=== PATIENT | male | born 1935 | race Caucasian/White ===

== ENCOUNTER 2017-01-27 16:55 | Inpatient (IN) | payer MEDICARE, OTHER ==
[2017-01-27] MEDS: Sodium Chloride 0.9% 1000 ML 1,000 ML IV SCH (17:26)
[2017-01-27 17:32] LABS: Lactic Acid 3.4 (0.4-2.0)
[2017-01-27 17:35] LABS: BASOPHIL % 0.4 % (0.0-0.4); Granulocytes % 77.8 % (36.0-66.0); Lymphocytes % 10.7 % (24.0-44.0); Mean Corpuscular Hemoglobin 31.1 pg (26-32); Mean Platelet Volume 9.7 fl (6-9.5); Monocytes % 9.1 % (0.0-12.0); Platelet Count 237 K/mm3 (150-450); Red Blood Count 4.54 M/mm3 (4.1-5.6); Red Cell Distribution Width 13.4 % (11.5-14.0); White Blood Count 9.4 K/mm3 (4.0-10.5)
--- NOTE | 2017-01-27 17:36 | ERPHSYRPT ---
- History of Present Illness Time Seen by Provider: 01/27/17 17:19 Source: patient, EMS Patient Subjective Stated Complaint: PT BROUGHT TO ED PER EMS FROM HOME-REPORTS CALLED TO SCENE FOR SYNCAPAL EPISODE-REPROTS PT WAS WAKING UP UPON THEIR ARRIVAL -VOMIT X 1-PT DENIES PAIN-PT STATES THAT HE HAS HAD RECENT FALLS Triage Nursing Assessment: PT ALERT ANSWERING QUESTIONS CORRECTLY-BRUISES NOTED- OPENED SORES NOTED TO BILATERAL LOWER LEGS-RESP NONLABORED-PUPILS RESPONSIVE Physician History: CC: syncope Hx: 81 y/o patient with no local doctor. He fall a lot when he gets up at night to urinate. Today he went to BR. He was going back to his easy chair and passed out. Friend apparently found him blacked out in the easy chair. No specific injury today. He has multiple abrasions on legs. He has contusion to left face and left subconj hemorrhage which he reports is from fall a week ago. He has some headache. No neck pain. No local doctor ALL: None Meds: Aleve prn Surg: Eye ILL: None Social: Nonsmoker,lives alone Prior Episodes: single episode today Timing/Duration: today Precipitating Factors: none Allergies/Adverse Reactions: No Known Drug Allergies Allergy (Unverified 01/27/17 17:06) Home Medications: No Home Meds 1 ea MC UD 01/27/17 [History] Hx Tetanus, Diphtheria Vaccination/Date Given: No Hx Influenza Vaccination/Date Given: Yes Hx Pneumococcal Vaccination/Date Given: No Immunizations Up to Date: Yes - Past Medical History Pertinent Past Medical History: No - Past Surgical History Past Surgical History: No - Social History Smoking Status: Never smoker Exposure to second hand smoke: No Drug Use: none Patient Lives Alone: No - Review of Systems Constitutional: Fatigue, Malaise, Weakness, Other (frequent falls), No Fever, No Chills Eyes: No Symptoms Respiratory: No Cough, No Dyspnea Cardiac: Syncope, No Chest Pain, No Edema, No Palpitations Abdominal/Gastrointestinal: No Abdominal Pain, No Nausea, No Vomiting, No Diarrhea Genitourinary Symptoms: Frequency, Hesitancy, No Dysuria Musculoskeletal: Injury (frequent falls), No Back Pain, No Neck Pain Neurological: Headache, No Focal Weakness, No Parasthesia All Other Systems: Reviewed and Negative Physical Exam - Nursing Vital Signs Nursing Vital Signs: Initial Vital Signs Temperature 98.8 F Temperature Source Rectal Pulse Rate 80 Respiratory Rate 20 Blood Pressure [] 130/65 Pain Intensity 0 - Madalyn Coma Scale Best Eye Response (Maadlyn): (4) open spontaneously Best Verbal Response (Manley): (5) oriented Best Motor Response (Manley): (6) obeys commands Madalyn Total: 15 - Physical Exam General Appearance: alert Eye Exam: left eye: conjunctival hemorrhage, bilateral eye: PERRL, EOMI Ears, Nose, Throat Exam: normal ENT inspection, moist mucous membranes, other ( no facial bony tenderness) Neck Exam: normal inspection, non-tender, supple Respiratory: normal breath sounds Cardiovascular: regular rate/rhythm, No murmur Gastrointestinal: soft, hernia (inguinal right), No tenderness, No distention Male Genitalia: No testicular tenderness Back Exam: normal inspection, No vertebral tenderness Extremity Exam: normal range of motion, other (multiple abrasions, contusions) Mental Status: alert, oriented x 3, cooperative Motor/Sensory: no motor deficit, no sensory deficit Skin Exam: normal color, warm, dry, No rash SpO2 Interpretation: normal SpO2: 96 Oxygen Delivery: Room Air - Course Nursing assessment & vital signs reviewed: Yes EKG Interpreted by Me: RATE (74), Sinus Rhythm, NORMAL AXIS, NORMAL INTERVALS ( QTc 424), NORMAL QRS, NORMAL ST-T - Radiology Exams cxr X-ray Interpretation: Reviewed by me, Negative - CT Exams head CT Interpretation: Tele-radiologist Report (maxillary sinus thickening with air fluid level), No Fracture, No/Intracranial Hemorrhag cervical CT Interpretation: Tele-radiologist Report, DJD, No Fracture, No Subluxation Ordered Tests: Active Orders 24 hr Category Date Time Status Clean Catch Urine Specimen STAT Care 01/27/17 17:19 Active EKG-ER Only STAT Care 01/27/17 17:19 Active IV Insertion STAT Care 01/27/17 17:19 Active CERVICAL SPINE WO CONTRAST [CT] Stat Exams 01/27/17 17:25 Taken CHEST 1 VIEW (PORTABLE) Stat Exams 01/27/17 17:19 Taken HEAD WITHOUT CONTRAST [CT] Stat Exams 01/27/17 17:25 Taken BLOOD CULTURE Stat Lab 01/27/17 17:30 Received CBC W DIFF Stat Lab 01/27/17 17:30 Completed CMP Stat Lab 01/27/17 17:30 Completed Lactic Acid Stat Lab 01/27/17 17:19 Results PROTIME WITH INR Stat Lab 01/27/17 17:30 Completed PTT Stat Lab 01/27/17 17:30 Completed UA Stat Lab 01/27/17 17:19 Ordered Medication Summary Generic Name Dose Route Start Last Admin Trade Name Delisa PRN Reason Stop Dose Admin Sodium Chloride 1,000 mls @ 100 mls/hr 01/27/17 17:30 01/27/17 17:26 Sodium Chloride 0.9% 1000 Ml IV 02/26/17 17:29 100 mls/hr .Q10H REYNA Administration Lab/Rad Data: Laboratory Result Diagrams 01/27/17 17:30 01/27/17 17:30 Laboratory Results 01/27/17 01/27/17 01/27/17 Range/Units 17:30 17:30 17:30 WBC 9.4 (4.0-10.5) K/mm3 RBC 4.54 (4.1-5.6) M/mm3 Hgb 14.1 (12.5-18.0) gm/dl Hct 41.3 L (42-50) % MCV 91.0 (78-100) fl MCH 31.1 (26-32) pg MCHC 34.1 (32-36) g/dl RDW 13.4 (11.5-14.0) % Plt Count 237 (150-450) K/mm3 MPV 9.7 H (6-9.5) fl Gran % 77.8 H (36.0-66.0) % Lymphocytes % 10.7 L (24.0-44.0) % Monocytes % 9.1 (0.0-12.0) % Eosinophils % 2.0 (0.00-5.0) % Basophils % 0.4 (0.0-0.4) % Basophils # 0.04 (0-0.4) INR 1.09 (0.8-3.0) APTT 25.5 (24.1-36.1) SECONDS Sodium 144 (136-145) mEq/L Potassium 3.8 (3.5-5.1) mEq/L Chloride 107 (98-107) mEq/L Carbon Dioxide 28.4 (21-32) mEq/L Anion Gap 12.6 (5-15) MEQ/L BUN 24 H (9-20) mg/dL Creatinine 1.29 (0.55-1.30) mg/dl Estimated GFR 57 ML/MIN Glucose 180 H (70-110) MG/DL Lactic Acid (0.4-2.0) Calcium 9.3 (8.5-10.1) mg/dL Total Bilirubin 0.5 (0.2-1.0) mg/dL AST 38 H (15-37) U/L ALT 33 (12-78) U/L Alkaline Phosphatase 59 (46-116) U/L Serum Total Protein 6.6 (6.4-8.2) gm/dL Albumin 3.1 L (3.4-5.0) g/dL 01/27/17 Range/Units 17:19 WBC (4.0-10.5) K/mm3 RBC (4.1-5.6) M/mm3 Hgb (12.5-18.0) gm/dl Hct (42-50) % MCV (78-100) fl MCH (26-32) pg MCHC (32-36) g/dl RDW (11.5-14.0) % Plt Count (150-450) K/mm3 MPV (6-9.5) fl Gran % (36.0-66.0) % Lymphocytes % (24.0-44.0) % Monocytes % (0.0-12.0) % Eosinophils % (0.00-5.0) % Basophils % (0.0-0.4) % Basophils # (0-0.4) INR (0.8-3.0) APTT (24.1-36.1) SECONDS Sodium (136-145) mEq/L Potassium (3.5-5.1) mEq/L Chloride (98-107) mEq/L Carbon Dioxide (21-32) mEq/L Anion Gap (5-15) MEQ/L BUN (9-20) mg/dL Creatinine (0.55-1.30) mg/dl Estimated GFR ML/MIN Glucose (70-110) MG/DL Lactic Acid 3.4 H (0.4-2.0) Calcium (8.5-10.1) mg/dL Total Bilirubin (0.2-1.0) mg/dL AST (15-37) U/L ALT (12-78) U/L Alkaline Phosphatase (46-116) U/L Serum Total Protein (6.4-8.2) gm/dL Albumin (3.4-5.0) g/dL - Progress Progress Note: 01/27/17 17:[address] to rule out subdural hematomas. 01/27/17 19:19 Friend Rashmi here. She saw pt pass out. She was helping him move from a chair to a softer chair. He laid head on her chest, blacked out, completely unresponsive, vomited, had labored breathing. He did not awaken until ambulance. He has no jerking or seizure activity. It appears he has true syncope. He has considered moving to a [place] close to [place], [place]. Called Dr Hillman (oc) and will place in observation for tele and EEG. Discussed with : Rafy (oc) Will see patient in: hospital (observation) Counseled pt/family regarding: lab results, diagnosis, need for follow-up, rad results - Departure Time of Disposition: 19:21 Departure Disposition: Observation (Tele) Clinical Impression: Syncope, Frequent falls, Sinusitis Condition: Stable Critical Care Time: No
[2017-01-27 17:47] LABS: INR 1.09 (0.8-3.0); PROTIME 12.2 SECONDS (8.83-12.87)
[2017-01-27 17:49] LABS: PTT 25.5 SECONDS (24.1-36.1)
[2017-01-27 17:55] LABS: ALBUMIN 3.1 g/dL (3.4-5.0); ANION GAP 12.6 MEQ/L (5-15); BILIRUBIN,TOTAL 0.5 mg/dL (0.2-1.0); Carbon Dioxide 28.4 mEq/L (21-32); Potassium 3.8 mEq/L (3.5-5.1); Total Protein 6.6 gm/dL (6.4-8.2)
[2017-01-27] MEDS ORDERED: TENIVAC VIAL IM ONE ×2 (19:19→19:37)
[2017-01-27] MEDS ORDERED: ROCEPHIN 1 Gm-D5w 50 ml Bag** 1 G/50 ML IVPB IV ONE ×2 (19:22→19:37)
[2017-01-27] MEDS: Artificial Tears 15 ML OP PRN (22:36)
[2017-01-27 22:40] LABS: COMPLETE URINE MICROSCOPIC? YES; Collection Type CLEAN CATCH; Epithelial Cells FEW /HPF (FEW); Mucus SLIGHT /HPF (NEGATIVE); Ph 5.5 (5-6)
--- NOTE | 2017-01-27 22:53 | XRAY ---
Indication: Syncope. Headache. Multiple contiguous axial images obtained through the head without contrast. Comparison: None Age-appropriate global atrophy and mild periventricular degenerative micro-ischemia. No acute intracranial hemorrhage, abnormal extra-axial fluid collection, or mass effect. Fourth ventricle is midline without hydrocephalus. Bony calvarium intact. Moderate mucosal thickening of both maxillary sinuses with tiny fluid leveling. Mastoid air cells are clear. Impression: 1. Nonacute senile brain. 2. Incidental paranasal sinus disease. Comment: Preliminary interpretation was made by [facility]. No discrepancy. CTDI 50.53
--- NOTE | 2017-01-27 22:53 | XRAY ---
Indication: Syncope. Headache. Comparison: None Portable chest demonstrates normal heart and lungs. Bony thorax intact with mild osteopenia, degenerative changes, and old left clavicle fracture.
--- NOTE | 2017-01-27 22:59 | XRAY ---
Indication: Syncope. Headache. Multiple contiguous axial images obtained through the cervical spine. Sagittal and coronal reformatted images obtained. Comparison: None Axial images negative for acute fracture, suspicious bony lesions, or spinal canal stenosis. Moderate/advanced multilevel degenerative changes including endplate spurring, subcortical cysts, degenerative vacuum discs, and bilateral degenerative facet arthropathy. Sagittal and coronal reformatted images demonstrates normal alignment with multilevel degenerative disc space narrowing, greatest at the C5-C7 levels. No acute compression fracture, subluxation, or jumped facet normal-appearing craniocervical junction. Visualized noncontrasted soft tissues demonstrates heavy carotid calcifications bilaterally. Lung apices clear. Old left clavicle fracture. Patient has very little dentition with multiple dental caries. Mild mucosal thickening of both maxillary sinuses with tiny fluid leveling. Impression: 1. No acute fracture/subluxation. 2. Multilevel degenerative changes throughout. 3. Incidental paranasal sinus disease. Comment: Preliminary interpretation was made by C. No discrepancy. CTDI 57.80
[2017-01-28] MEDS: Sodium Chloride 0.9% 1000 ML 1,000 ML IV SCH ×2 (02:43→14:24)
[2017-01-28 13:02] LABS: Lactic Acid 2.4 (0.4-2.0)
[2017-01-28] MEDS: ROCEPHIN 1 Gm-D5w 50 ml Bag** 1 G/50 ML IVPB IV SCH (21:05)
[2017-01-28] MEDS ORDERED: Colace 100 MG PO SCH (22:00)
[2017-01-28] MEDS: Artificial Tears 15 ML OP PRN (22:37)
--- NOTE | 2017-01-29 08:46 | HP ---
HISTORY OF PRESENT ILLNESS: This is a 89 year-old patient who was brought to the emergency department by ambulance. He does not have a doctor that he sees on a regular basis at all. The patient reports that he has had periods of confusion and waking up on the floor. He reports this has been going on for nine to ten months. He states that his legs feel weak and just seem to keep getting weaker and weaker. He has a cane at home but he does not usually does not use this. He reports that yesterday he must have had an episode like this when a caregiver named, Rashmi Broderick, was there and according to the emergency department note she was there and witnessed him passing out and called the ambulance. The patient reports that he has multiple scrapes from falls including multiple scrapes on his lower extremities as well as the left side of his face. He reports that he cannot tell when these episodes are going to happen. He denies any chest pain, dyspnea, palpitations, any lightheadedness or dizziness before they happen. His nurse reports that he has a sore on his coccyx and right bottom. He has already been transferred to his chair and he is a heavy assist so I did not look at these personally yet. REVIEW OF SYSTEMS: He said he had some sinus headache, trouble urinating. He denies any syncope with urination. No diarrhea. He reports some constipation. No lower extremity edema. Otherwise review of systems is negative. PAST MEDICAL HISTORY: According to what he has told me, he most likely has benign prostatic hypertrophy but does not report any past medical history of any problems besides frequent falls and possibly syncope. He reports he was seen at for similar symptoms a year ago and [facility] way back in August 2001. PAST SURGICAL HISTORY: Cataracts. MEDICATIONS: Aleve [id number] as needed. ALLERGIES: NKDA. SOCIAL HISTORY: He lives alone. He would like to go to rehab. He denies any tobacco or alcohol use. He reports having daughters and a son who live in [place] but not locally. FAMILY HISTORY: His mom he reports was a hypochondriac. His dad at 62 years of age from coronary artery disease. PHYSICAL EXAMINATION: VITAL SIGNS: Temperature current 97.6F, temperature max 98.5F, heart rate 78 to 88, respiratory rate 16 to 20, blood pressure 123 to 163 over 64 to 81. Oxygen saturation 96 to 98% on 2 liters nasal cannula. GENERAL: The patient is sitting up in his chair a pleasant talkative man in no acute distress. He is alert and oriented x3. HEENT: He has a subconjunctival hemorrhage of his left eye. CVS: He has a regular rate and rhythm. No murmurs, gallops or rubs are appreciated. Carotid arteries I do not hear any bruits. CHEST: Clear to auscultation bilaterally. No crackles or wheezes. ABDOMEN: Soft, nontender, nondistended with normal bowel sounds. EXTREMITIES: No clubbing, cyanosis or edema. SKIN: He has multiple scrapes on his lower extremities worse on the left side than the right. He also has an abrasion on his left cheek. LABORATORY DATA AND TESTS: CBC revealed hematocrit 41.3. Glucose 180, lactic acid 3.4, AST 38. UA negative. Blood cultures are in lab. EKG revealed a sinus rhythm at 74 with poor R-wave progression. Chest x-ray was read as mild osteopenia, degenerative changes and old left clavicle fracture. CT of his cervical spine showed no acute fracture or subluxation, multilevel degenerative changes throughout, incidental paranasal sinus disease. Head CT without contrast nonacute senile brain, incidental paranasal sinus disease. ASSESSMENT AND PLAN: 1) SYNCOPE: Will check orthostatic vital signs every 12 hours, check echocardiogram, check EKG, check carotid Dopplers, will continue with telemetry, will check a troponin. Will also check EEG. 2) HYPOGLYCEMIA: Will check hemoglobin A1C. 3) ELEVATED LACTIC ACID: Will recheck this. 4) BENIGN PROSTATIC HYPERTROPHY: Will hold off on treatment right now as we are trying to confirm etiology for his syncopal episodes and I do not want to lower his blood pressure at this time. 5) CODE STATUS: He does not want to have chest compressions or be placed on a ventilator and this was discussed with the patient and code status form was signed in the front of his chart. He is to be supportive care only. DISPOSITION: The patient desires to be placed in a rehab facility. He states he is not sure where he wants to go for this.
[2017-01-29] MEDS ORDERED: Colace 100 MG PO PRN (08:48)
--- NOTE | 2017-01-29 08:54 | PCM.NOTE ---
Date and Time: 01/29/17 0848 Subjective Assessment: He reports his throat has been sore for about 3 months. He reports his constipation resolved with the medications given. Overnight he had one blood culture grow gram positive cocci. He has not had any further episodes of syncope. - Review of Systems Constitutional: No Symptoms Eyes: No Symptoms Ears, Nose, & Throat: Throat Pain Respiratory: No Symptoms Cardiac: No Symptoms Abdominal/Gastrointestinal: No Symptoms Genitourinary Symptoms: No Symptoms Musculoskeletal: No Symptoms Skin: Decubiti, Skin Lesions Neurological: No Symptoms Objective Exam General Appearance: no apparent distress (mild erythema of throat), alert Neurologic Exam: alert, cooperative, normal mood/affect Skin Exam: normal color, warm, dry, other (multiple healing scabs on his lower legs and one on the left side of his face; ulcers on his bottom (see pictures in chart)) Respiratory Exam: normal breath sounds, lungs clear, No crackles/rales, No rhonchi, No wheezing Cardiovascular Exam: regular rate/rhythm, normal heart sounds, No murmur, No friction rub, No gallop Gastrointestinal/Abdomen Exam: soft, normal bowel sounds, No tenderness, No distention, No mass Extremity Exam: normal inspection, other (no c/c/e) OBJECTIVE DATA Vital Signs: Vital Signs - 24 hr Temp Pulse Resp BP Pulse Ox 01/29/17 08:32 177/81 01/29/17 08:30 154/81 01/29/17 08:00 98.2 F 79 18 189/91 95 01/29/17 04:00 98.5 F 75 20 166/79 96 01/29/17 00:00 99.2 F 73 20 179/81 98 01/28/17 20:00 98.3 F 76 20 186/79 99 01/28/17 13:53 97.9 F 98 H 20 140/76 97 01/28/17 12:00 20 01/28/17 10:14 95 Pain Assessment - Last Documented Pain Scale Used 0-10 Pain Scale Intake and Output: Intake & Output 01/27/17 01/28/17 01/29/17 01/30/17 06:59 06:59 06:59 06:59 Intake Total 1352 3165 Output Total 1250 1100 Balance 102 2065 Weight 73.936 kg Lab Results: Lab Results-Last 24 Hours 01/28/17 01/28/17 01/28/17 Range/Units 11:45 12:45 12:45 Hemoglobin A1c 5.1 (4.5-6.2) Lactic Acid 2.4 H (0.4-2.0) Troponin I < 0.017 (0.000-0.056) ng/ml 01/28/17 Range/Units 15:02 Hemoglobin A1c (4.5-6.2) Lactic Acid 0.9 (0.4-2.0) Troponin I (0.000-0.056) ng/ml Radiology Exams: Radiology Procedures Category Date Time Status CAROTID BILATERAL [US] Routine Exams 01/28/17 09:01 Ordered ECHO W/2D AND DOPPLER [US] Routine Exams 01/28/17 09:00 Ordered Multi-Disciplinary Progress Notes: Multi-Disciplinary Progress Notes 01/29/17 04:34 Respiratory Note by Julian Greenberg DURING REPORT FROM DAY SHIFT I WAS TOLD THAT THIS PT HAD A LACTIC "DONE LATE" DUE TO PT EATING AND REFUSAL AND THAT IT WAS STILL HIGH SO THERE WOULD BE A REPEAT NEEDED BUT IT WOULD BE "AT 7" AND I WOULDN'T HAVE TO WORRY ABOUT IT. I MISUNDERSTOOD THAT IT WOULD NEED TO BE DONE THE NEXT DAY AT 7 WHEN I WAS GONE FOR THE DAY. NURSING APPROACHED ME REGARDING THE REPEAT LACTIC AND AFTER LOOKING INTO IT I GATHERED THAT I WOULD NEED TO GO AHEAD AND DO IT SOON POSSIBLE. IT APPEARS (ALTHO THE TIMELINE IS STILL UNCLEAR TO ME) THAT IT MAY HAVE NEEDED TO BE DONE AT 1900. I DID THE LACTIC AT 0345 ON 01/29/17 AND IT WAS 0.9. I INFORMED NURSING OF THE MOST RECENT VALUE. Initialized on 01/29/17 04:34 - END OF NOTE 01/28/17 15:31 Respiratory Note by Cathy An LACTIC ACID DRAWN LATE. PT REFUSED TO FINISH HIS LUNCH, THEN REFUSED TO USE THE BATHROOM. THEREFOR REPEAT LACTIC NOT DRAWN TILL 1900 Initialized on 01/28/17 15:31 - END OF NOTE 01/28/17 14:42 Case Management Note by Mariah Segura REVIEW DISCHARGE NEEDS, PT HAS NO HELP AT HOME, EXCEPT A FRIEND, [place]. NEEDS NH PLACEMENT AND PT IS AGREEABLE TO THIS. WOULD LIKE TO BE PLACED CLOSE TO [facility]. SHARATHCAREGIVER NAMED, BORIS ROGERS, BUT NO INFORMATION IS AVAILBLE ON HER. WILL CONTINUE TO MONITOR FOR ALL D/C NEEDS. Initialized on 01/28/17 14:42 - END OF NOTE Assessment/Plan (1) Syncope Current Visit: Yes Status: Acute Assessment & Plan: EEG, cardiac Echo, carotid dopplers all ordered. Continue tele. He has not had any events. His EKG is unchanged. Continue close monitoring. He is SCO. Code(s): R55 - SYNCOPE AND COLLAPSE (2) Hypertension Current Visit: Yes Status: Acute Assessment & Plan: Start lisinopril today. Code(s): I10 - ESSENTIAL (PRIMARY) HYPERTENSION (3) Bacteremia Current Visit: Yes Status: Acute Assessment & Plan: Continue to follow culture for ID and sensitivity. Continue ceftriaxone. His lactic acid is now in the normal range. May possibly be from his sinus infection or his skin lesions. Code(s): R78.81 - BACTEREMIA (4) Sinusitis Current Visit: Yes Status: Acute Assessment & Plan: Continue ceftriaxone. Code(s): J32.9 - CHRONIC SINUSITIS, UNSPECIFIED (5) Decubitus ulcer Current Visit: Yes Status: Acute Assessment & Plan: Will ask PT to look at wound. Code(s): L89.90 - PRESSURE ULCER OF UNSPECIFIED SITE, UNSPECIFIED STAGE
[2017-01-29] MEDS ORDERED: Zestril 10 MG PO SCH (10:00)
[2017-01-29] MEDS: Artificial Tears 15 ML OP PRN (10:21)
--- NOTE | 2017-01-29 12:30 | XRAY ---
Indication: Syncope. Two-dimensional sonogram and color Doppler imaging of the carotid arteries of the neck performed. Comparison: None Examination of the right carotid circulation demonstrates tiny eccentric calcification in the common carotid artery. Mild calcified plaquing at the level of the bulb extending into the origin of the internal carotid artery. PSV of the CCA is 163 cm/s. PSV of the ICA is 65 cm/s. ICA/CCA ratio is 0.4. Normal antegrade vertebral artery flow. Examination of the left carotid circulation demonstrates minimal calcified plaquing at the level of the bulb slightly extending to the origin of the internal and external carotid arteries. PSV of the CCA is 110 cm/s. PSV of the ICA is 72 cm/s. ICA/CCA ratio is 0.7. Normal antegrade vertebral artery flow. Impression: 1. 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 2. Minimal disease in the left bulb, estimated less than 50% stenosis. 3. Normal bilateral antegrade vertebral artery flow.
[2017-01-29] MEDS: Sodium Chloride 0.9% 1000 ML 1,000 ML IV SCH (21:26)
[2017-01-29] MEDS: ROCEPHIN 1 Gm-D5w 50 ml Bag** 1 G/50 ML IVPB IV SCH (21:26)
[2017-01-30] MEDS ORDERED: CARDIZEM DRIP 100 MG/100 ML D5W 100 ML IV ONE (01:33)
[2017-01-30] MEDS ORDERED: Cardizem IV 50 MG/10 ML IV ONE ×3 (01:33→01:44)
[2017-01-30] MEDS ORDERED: CARDIZEM DRIP 100 MG/100 ML D5W 100 ML IV PRN (01:45)
[2017-01-30] MEDS ORDERED: ENOXAPARIN SODIUM SQ ONE (02:04)
[2017-01-30] MEDS: ENOXAPARIN SODIUM SQ SCH ×2 (02:12→10:17)
[2017-01-30] MEDS: TYLENOL 325 MG PO PRN (02:17)
--- NOTE | 2017-01-30 08:49 | PCM.NOTE ---
Date and Time: 01/30/17843 Subjective Assessment: Patient with atrial fibrillation with RVR overnight that is new for him. He states he would not have known that he was having this heart rhythm if the nurses did not tell him. He reports he is feeling better than when he came into the hospital. His appetite has been good. His nurse reports his orthostatic vitals have been good. - Review of Systems Constitutional: No Symptoms Eyes: No Symptoms Ears, Nose, & Throat: No Symptoms Respiratory: No Symptoms Cardiac: No Symptoms Abdominal/Gastrointestinal: No Symptoms Genitourinary Symptoms: No Symptoms Musculoskeletal: No Symptoms Skin: Other (bruises) Objective Exam General Appearance: no apparent distress, alert Neurologic Exam: alert, cooperative, normal mood/affect Skin Exam: normal color, warm, dry, other (multiple bruises on his lower legs and left side of face) Respiratory Exam: normal breath sounds, lungs clear, No crackles/rales, No rhonchi, No wheezing Cardiovascular Exam: other (tachycardic, irregularly irregular) Gastrointestinal/Abdomen Exam: soft, normal bowel sounds, No tenderness, No distention, No mass Extremity Exam: other (no c/c/e) OBJECTIVE DATA Vital Signs: Vital Signs - 24 hr Temp Pulse Resp BP BP Pulse Ox 01/30/17 08:00 98 H 18 144/74 01/30/17 07:57 113 H 20 01/30/17 04:00 91 H 20 124/65 96 01/30/17 02:40 118 H 01/30/17 02:05 118 H 18 116/85 01/30/17 00:00 98.6 F 76 19 169/77 94 L 01/29/17 20:06 97.9 F 77 21 182/78 97 01/29/17 20:00 21 01/29/17 19:24 182/78 01/29/17 16:00 98.4 F 78 18 166/74 97 01/29/17 12:00 98.4 F 70 18 188/84 98 01/29/17 11:51 18 01/29/17 11:40 80 18 96 Pain Assessment - Last Documented Pain Intensity 0 Pain Scale Used 0-10 Pain Scale Intake and Output: Intake & Output 01/28/17 01/29/17 01/30/17 01/31/17 06:59 06:59 06:59 06:59 Intake Total 1352 3165 1773 Output Total 1250 1100 700 Balance 102 2065 1073 Weight 73.936 kg Radiology Exams: Radiology Procedures Category Date Time Status CAROTID BILATERAL [US] Routine Exams 01/29/17 09:01 Completed ECHO W/2D AND DOPPLER [US] Routine Exams 01/29/17 09:00 Taken Multi-Disciplinary Progress Notes: Multi-Disciplinary Progress Notes 01/29/17 15:45 Case Management Note by Claire Quiñones [facility] HERE TO [facility]. REPORTS THAT THEY WILL HAVE BED AVAIL WHEN MD READY FOR DISCHARGE. Initialized on 01/29/17 15:45 - END OF NOTE 01/29/17 10:30 (created 01/29/17 14:10) Case Management Note by Claire Quiñones DISCHARGE PLAN REVIEWED WITH PT. DISCUSSED THAT HIS CHILDREN FEEL THAT HE COULD BENEFIT FROM REHAB STAY @ [facility] HE IS DECONDITIONED AND LIVES ALONE. PT IS IN AGREEMENT. REPORTS THAT HE WILL BE WILLING TO GO TO FACILITY THAT HIS FAMILY HAS CHOSEN - [facility]. REQUESTS REFERRAL. CALL TO [place] TO REPORT REFERRAL - SPOKE WITH SANJAY. FAXED PERTINENT INFORMATION. AWAIT NOTIFICATION OF BED AVAILABILITY. Initialized on 01/29/17 14:10 - END OF NOTE 01/29/17 10:00 (created 01/29/17 13:58) Case Management Note by Claire Quiñones SPOKE WITH BECK PT'S DAUGHTER VIA TELEPHONE. REPORTS THAT SHE AND HER FAMILY HAVE BEEN LOOKING AT FACILITIES FOR PT TO REHAB. REPORTS THAT THEY WOULD LIKE REFERRAL TO [facility] IN [place], [place]. WILL DISCUSS WITH PT AND SUBMIT REFERRAL. WILL CONTINUE TO FOLLOW AND ASSESS FOR ALL DC NEEDS. Initialized on 01/29/17 13:58 - END OF NOTE Assessment/Plan (1) Atrial fibrillation with RVR Current Visit: Yes Status: Acute Assessment & Plan: I had him transferred to ICU last night and they gave him cardizem 15 mg IV bolus and then placed on drip. I started him on lovenox but will await Dr. Rowland's recommendation on assisted anticoagulation. Will check TSH. Echo has been done and Dr. Rowland has been asked to read this. Code(s): I48.91 - UNSPECIFIED ATRIAL FIBRILLATION (2) Syncope Current Visit: Yes Status: Acute Assessment & Plan: Echo done but no reading yet. Carotid dopplers without significant stenosis. Tele with asia griggs with RVR last night requiring transfer to ICU for cardizem drip. Dr. Rowland consulted. Code(s): R55 - SYNCOPE AND COLLAPSE (3) Hypertension Current Visit: Yes Status: Acute Assessment & Plan: Better controlled on diltiazem drip. Will stop lisinopril as most likely he will be transitioned to oral cardizem which will help with rate control and his blood pressure. Code(s): I10 - ESSENTIAL (PRIMARY) HYPERTENSION (4) Bacteremia Current Visit: Yes Status: Acute Assessment & Plan: Blood culture still in lab and awaiting ID and sensitivity. Continue ceftriaxone. Code(s): R78.81 - BACTEREMIA (5) Sinusitis Current Visit: Yes Status: Acute Assessment & Plan: Improved with IV ceftriaxone. Code(s): J32.9 - CHRONIC SINUSITIS, UNSPECIFIED (6) Decubitus ulcer Current Visit: Yes Status: Acute Code(s): L89.90 - PRESSURE ULCER OF UNSPECIFIED SITE, UNSPECIFIED STAGE
[2017-01-30 09:43] LABS: BASOPHIL % 0.5 % (0.0-0.4); Eosinophil % 5.7 % (0.00-5.0); Granulocytes % 65.9 % (36.0-66.0); Lymphocytes % 19.3 % (24.0-44.0); Mean Cell Volume 92.2 fl (78-100); Mean Corpuscular Hemoglobin 30.8 pg (26-32); Mean Platelet Volume 9.7 fl (6-9.5); Monocytes % 8.6 % (0.0-12.0); Platelet Count 261 K/mm3 (150-450); Red Blood Count 4.64 M/mm3 (4.1-5.6); Red Cell Distribution Width 13.6 % (11.5-14.0); White Blood Count 9.4 K/mm3 (4.0-10.5)
[2017-01-30 10:03] LABS: BLOOD UREA NITROGEN 17 mg/dL (9-20); CHLORIDE 107 mEq/L (98-107); Carbon Dioxide 29.6 mEq/L (21-32); Glucose 88 MG/DL (70-110); Potassium 3.1 mEq/L (3.5-5.1); SODIUM 142 mEq/L (136-145)
[2017-01-30] MEDS ORDERED: Klor Con 10 MEQ PO ONE (10:56)
[2017-01-30] MEDS ORDERED: Cardizem CD 180 MG PO ONE (11:15)
[2017-01-30] MEDS ORDERED: PHARMACY DOSING REQUEST MC ONE (12:35)
[2017-01-30] MEDS ORDERED: Magnesium 1 Gm / 100 Ml D5W*** 100 ML IV ONE (14:00)
[2017-01-30] MEDS: ROCEPHIN 1 Gm-D5w 50 ml Bag** 1 G/50 ML IVPB IV SCH (22:13)
[2017-01-30] MEDS: ELIQUIS PO SCH (22:13)
[2017-01-31] MEDS: TYLENOL 325 MG PO PRN (07:30)
[2017-01-31] MEDS: ELIQUIS PO SCH (08:07)
--- NOTE | 2017-01-31 08:32 | PCM.DCORD ---
- Discharge Discharge Date: 01/31/17 Disposition: DC TO ANY "OTHER" USP Condition: Good Prescriptions: New Polyvinyl Alcohol [Artificial Tears] 1 ml OP Q1HPRN PRN #0 drops PRN Reason: subconjuntival hemorrage Diltiazem HCl [Diltiazem 24Hr Cd] 180 mg PO DAILY #30 cap.er.24h Apixaban [Eliquis] 5 mg PO BID #0 tablet Cefdinir [Omnicef] 300 mg PO BID #12 capsule Acetaminophen 325 mg [Tylenol 325 mg] 650 mg PO Q4H PRN PRN #0 tablet PRN Reason: Pain And/Or Fever Discontinued No Home Meds 1 ea UD Additional Instructions: Please bring a current list of your medications to your appointment with Dr. Alvarez. PT/OT evaluation at long term. Wound care for buttocks wounds. Follow up with: ALBARO ALVAREZ [ACTIVE STAFF] - 02/08/17 1:00 pm DOCTOR,NO FAMILY [Primary Care Provider] - Forms: Patient Portal Information
[2017-01-31] MEDS ORDERED: Cardizem CD 180 MG PO SCH (10:00)
[2017-01-31 11:17] VITALS: BP 164/84; PULSE 80; O2SAT 97
--- NOTE | 2017-02-01 10:18 | ECHO ---
Transthoracic echocardiographic examination and color Doppler was done on 01/29/2017. INDICATION: Atrial fibrillation. IMPRESSION: 1) NO DEFINITE REGIONAL WALL MOTION ABNORMALITY. ESTIMATED GLOBAL LEFT VENTRICULAR EJECTION FRACTION OF AROUND 50 TO 60%. 2) TRACE MITRAL REGURGITATION. 3) MILD TRICUSPID REGURGITATION. RIGHT VENTRICULAR SYSTOLIC PRESSURE OF 40 MM OF MERCURY. 4) LEFT VENTRICULAR HYPERTROPHY. 5) MILDLY DILATED RIGHT SIDE CHAMBERS. The left ventricle is partially visualized but it demonstrated adequate contractility. Estimated global left ventricular ejection fraction of around 50 to 60%. There is concentric mild left ventricular hypertrophy. The mitral valve is seen and this opens adequately. There is trace mitral regurgitation. Left atrium is normal. The aortic valve opens adequately. The right side chambers are mildly dilated. There is mild tricuspid regurgitation. Right ventricular systolic pressure of 40 mm of Mercury.
--- NOTE | 2017-02-01 10:43 | DS ---
DISCHARGE DIAGNOSIS: 1. SYNCOPE. 2. ATRIAL FIBRILLATION WITH RAPID VENTRICULAR RESPONSE, NOW WITH PAROXYSMAL ATRIAL FIBRILLATION. 3. HYPERTENSION. 4. BACTEREMIA. 5. SINUSITIS. 6. DECUBITUS ULCER. 7. FREQUENT FALLS. DISCHARGE PHYSICAL EXAM: VITALS: Temperature current 98, temperature maximum 99.2, heart rate 71-76, respiratory rate 20, O2 saturation 93-96% on room air, BP 128-160/58-90. GENERAL: The patient is a pleasant, talkative man sitting up in no acute distress. He is alert. CVS: He has a regular rate and rhythm. No murmurs, gallops, or rubs are appreciated. LUNGS: Clear to auscultation bilaterally. No crackles or wheezes. ABDOMEN: Soft, nontender, nondistended with normal bowel sounds. EXTREMITIES: No clubbing, cyanosis, or edema. SKIN: The scab on the left side of his face has come off. He continues to have bruises on his lower extremities. There are pictures of his bottom in the chart from his decubitus ulcers. HOSPITAL COURSE: 1. Syncope. We had carotid Doppler's obtained without any significant stenosis. An echocardiogram was ordered that has not yet been read by sales representative facility services, Dr. Rowland. The patient did develop atrial fibrillation with rapid ventricular response on telemetry on 01/30/17 and this may be contributing to his syncope. He had no further syncopal episodes while here. He had serial EKG's without any acute changes. 2. Atrial fibrillation with rapid ventricular response on 01/30/17. He was transferred to the Intensive Care Unit for a Cardizem drip which he continued in the early hours of 01/30/17. During the day, he converted to normal sinus rhythm with this and he was transitioned to oral Cardizem. Homicide Squad Commanding Officer, Dr. Rowland, was consulted, but I do not think actually saw the patient. He plans to see him as an outpatient. He did order Eliquis for him 5 mg bid. I have given him a dose of Lovenox when he first went in to atrial fibrillation in the wee hours of the morning and this was discontinued when the Eliquis was started. The patient currently is in sinus rhythm. We checked a TSH. That was normal. 3. Hypertension. His BP is better controlled on the oral diltiazem. I have started him on lisinopril briefly, but when he went in to atrial fibrillation with rapid ventricular response, we changed this to the Cardizem. 4. Bacteremia. He had a blood culture that grew gram positive organism. ID and sensitivity is still pending at this time. It was gram positive cocci. He has been on ceftriaxone since he has been here and will send him to the custodial with cefdinir 300 mg bid for 6 more days to complete a 10 day course of antibiotics. 5. Sinusitis. Again, he was on ceftriaxone and will finish a course of cephalosporin with cefdinir. 6. Decubitus ulcer. Continue with nursing care. 7. Frequent falls. I asked for physical therapy to evaluate him here, but they said he would best have his initial evaluation at the rehab facility, so I have written for PT and OT to evaluate him when he gets there. DISCHARGE MEDICATIONS: Artificial Tears PRN, diltiazem 180 mg 24 hour CD tablet 1 tab PO daily, Eliquis 5 mg PO bid, Omnicef 300 mg PO bid for 6 more days, acetaminophen 325 mg tablets 2 tablets PO q 4 h PRN pain or fever. DISPOSITION: The patient is being discharged to the [facility] in [place], [place]. FOLLOW-UP: he is to follow-up with Dr. Rowland on 02/08/17 at 1:00 PM. He will follow-up with the doctor at the custodial there in [place] and I told him if he is ever back in this area, I am happy to see him as his primary care doctor. I have also asked for OT and PT evaluations at the custodial and wound care for his buttocks wounds.
== END 2017-01-31 11:50 | DRG 309 ==
LOC: ED 16:55 → OBSVTOIN 19:49 → MED SURG 19:49 → ICU 01-30 01:36 → MED SURG 01-30 14:39
PROVIDERS: ADMIT Internal Medicine; ATTEND Internal Medicine
DX: I48.0 Paroxysmal atrial fibrillation (principal); R78.81 Bacteremia; R55 Syncope and collapse; I10 Essential (primary) hypertension; J32.9 Chronic sinusitis, unspecified; L89.329 Pressure ulcer of left buttock, unspecified stage; R29.6 Repeated falls; S80.12XA Contusion of left lower leg, initial encounter; S80.11XA Contusion of right lower leg, initial encounter; R74.0 Nonspecific elevation of levels of transaminase and lactic acid dehydrogenase [LDH]; N40.0 Benign prostatic hyperplasia without lower urinary tract symptoms; E16.2 Hypoglycemia, unspecified; M85.80 Other specified disorders of bone density and structure, unspecified site; Z79.01 Long term (current) use of anticoagulants; Z79.899 Other long term (current) drug therapy
CPT/HCPCS: 36415; 70450; 71010; 72125; 80048; 80053; 81000; 83036; 83605; 83735; 84443; 84484; 85025; 85610; 85730; 87040; 87077; 87186; 90471; 90714; 93005; 93306; 93880; 94760; 95812; 96360; 96361; 96365; 99285; J0696; J1650; J3475; A9270-GY